=== PATIENT | female | born 1965 | race Caucasian/White ===

== ENCOUNTER → 2018-04-02 | Outpatient (CLI) | payer OTHER | END | disposition home or self-care (01) | LOC: LAB SHORT 11:00 → LAB 11:00 | DX: N39.0 Urinary tract infection, site not specified (principal) | CPT/HCPCS: 87077; 87086; 87186 ==

== ENCOUNTER → 2018-09-01 | Outpatient (CLI) | payer OTHER | END | disposition home or self-care (01) | LOC: LAB SHORT 10:15 → LAB 10:15 | DX: N39.0 Urinary tract infection, site not specified (principal) | CPT/HCPCS: 87077; 87086; 87186 ==

== ENCOUNTER 2019-02-12 19:57 | Emergency (ER) | payer OTHER ==
[~2019-02-12] VITALS: Ht 162.6 cm; Wt 90.7 kg
[2019-02-12] MEDS ORDERED: MED FOR DEPRESSION (22:21)
[2019-02-12] MEDS ORDERED: MED FOR THYROID (22:21)
[2019-02-12] MEDS ORDERED: ALLERGY MED (22:21)
[2019-02-12] MEDS ORDERED: CHOLESTEROL MED (22:22)
== END 2019-02-12 22:35 | disposition home or self-care (01) ==
LOC: ER 19:57
DX: S80.01XA Contusion of right knee, initial encounter (principal); E03.9 Hypothyroidism, unspecified; E78.5 Hyperlipidemia, unspecified; F32.9 Major depressive disorder, single episode, unspecified; Z88.2 Allergy status to sulfonamides; Z79.899 Other long term (current) drug therapy; W10.9XXA Fall (on) (from) unspecified stairs and steps, initial encounter
CPT/HCPCS: 73564; 99283-25; A9270-GY

== ENCOUNTER → 2023-08-10 | Outpatient (CLI) | payer OTHER ==
[~2023-08-10] MED LIST: ALLERGY MED; CHOLESTEROL MED; MED FOR DEPRESSION; MED FOR THYROID
== END | disposition home or self-care (01) ==
LOC: LAB 18:23 → LAB SHORT 18:23
DX: S69.91XA Unspecified injury of right wrist, hand and finger(s), initial encounter (principal); L08.9 Local infection of the skin and subcutaneous tissue, unspecified
CPT/HCPCS: 87070; 87077; 87147; 87186; 87205